=== PATIENT | male | born 1960 | race Caucasian/White ===

== ENCOUNTER 2024-04-04 09:21 | Day surgery (SDC) | payer MEDICARE, MEDICAID ==
[2024-03-31 11:42] LABS: BASOPHILS % (AUTO) 0.5 % (0-1); EOSINOPHILS % (AUTO) 0.7 % (0-6); HEMATOCRIT 39.6 % (42.0-52.0); HEMOGLOBIN 13.2 g/dl (14.0-17.9); LYMPHOCYTES # (AUTO) 1.7 X10'3 (1.1-4.8); LYMPHOCYTES % (AUTO) 26.4 % (21-51); MEAN CORPUSCULAR HEMOGLOBIN 31.9 PG (27.0-31.0); MEAN CORPUSCULAR HGB CONC 33.3 g/dL (33.0-36.5); MEAN CORPUSCULAR VOLUME 95.8 FL (78-98); MEAN PLATELET VOLUME 7.1 FL (7.4-10.4); MONOCYTES # (AUTO) 0.4 X10'3 (0-0.9); MONOCYTES % (AUTO) 6.4 % (2-12); NEUTROPHILS # (AUTO) 4.3 X10'3 (1.8-7.7); PLATELET COUNT 205 X10'3 (140-440); RED BLOOD COUNT 4.13 X10'6 (4.70-6.10); RED CELL DISTRIBUTION WIDTH 13.5 % (11.5-14.5); WHITE BLOOD COUNT 6.5 X10'3 (4.5-11.0)
[2024-03-31 11:48] LABS: APTT 26 SECONDS (22-32); PROTHROMBIN TIME 10.9 SECONDS (9.0-12.0)
[2024-03-31 12:02] LABS: ALBUMIN 4.1 G/DL (3.4-5.0); ANION GAP 5 (8-16); BLOOD UREA NITROGEN 21 MG/DL (7-18); BUN/CREATININE RATIO 12.1 (10.0-20.0); CALCIUM 8.8 MG/DL (8.5-10.1); CHLORIDE 105 MMOL/L (99-107); CHOL/HDL RATIO 2.2 (0.00-4.99); CHOLESTEROL 118 MG/DL (0-200); CREATININE 1.74 MG/DL (0.60-1.10); GLUCOSE 101 MG/DL (70-104); HDL CHOLESTEROL 54 MG/DL (35-60); LDL CHOLESTEROL 45 MG/DL (50-100); POTASSIUM 4.6 MMOL/L (3.5-5.1); SODIUM 138 MMOL/L (135-145); TOTAL CARBON DIOXIDE 28.2 MMOL/L (24-32); TRIGLYCERIDES 120 MG/DL (20-135); eGFR 40 ML/MIN
[~2024-04-04] VITALS: Ht 172.7 cm; Wt 87.6 kg
[2024-04-04] VITALS (9 sets, daily range): BP systolic 101–146; BP diastolic 76–101; PULSE 60–88; RESP 10–12; TEMP 98.2; O2SAT 95–100
[2024-04-04] MEDS ORDERED: NORT10CA81 PO (09:57)
[2024-04-04] MEDS ORDERED: ACET-1025 PO (09:57)
[2024-04-04] MEDS ORDERED: HALO20TA7 PO (09:57)
[2024-04-04] MEDS ORDERED: DULO-31 PO (09:57)
[2024-04-04] MEDS ORDERED: HYDR50TA65 PO (09:57)
[2024-04-04] MEDS ORDERED: LOSA1TAB41 PO (09:57)
[2024-04-04] MEDS ORDERED: FLUO10TA34 PO (09:57)
[2024-04-04] MEDS ORDERED: TOPI-95 PO (09:57)
[2024-04-04] MEDS ORDERED: OMEP20CA16 PO (09:57)
[2024-04-04] MEDS ORDERED: BACL10TA2 PO (09:57)
[2024-04-04] MEDS ORDERED: QUET300T20 PO (09:57)
[2024-04-04] MEDS ORDERED: ROSU10TA72 PO (09:59)
[2024-04-04] MEDS ORDERED: ALBU17AE26 (09:59)
[2024-04-04] MEDS: LORazepam 0.5 MG tablet PO PRN (10:20)
[2024-04-04] MEDS: normal saline 1,000 ML IV SCH (10:20)
[2024-04-04] MEDS: diphenhydrAMINE 25mg capsule PO PRN (10:20)
[2024-04-04] MEDS ORDERED: midazolam 1 mg/ML 2ml injection ONE ×4 (13:51→14:18)
[2024-04-04] MEDS ORDERED: heparin 1,000unit/ml 10ml vial 10 ML ONE (13:51)
[2024-04-04] MEDS ORDERED: verapamil 2.5 mg/ml inj IV ONE (13:51)
[2024-04-04] MEDS ORDERED: LIDOcaine 1% (10mg/ml) 2ml vial ONE (13:51)
[2024-04-04] MEDS ORDERED: fentaNYL/PF 50MCG/1 ML 2ML syringe ONE (13:51)
[2024-04-04] MEDS ORDERED: iohexol 350MG/ML 100ml bottle IV ONE (13:51)
[2024-04-04] MEDS ORDERED: nitroGLYCERIN 500mcg/5mL D5W 5 ML IV ONE (14:09)
[2024-04-04] MEDS ORDERED: ondansetron/PF 4mg/2ml inj IV PRN (14:55)
[2024-04-04] MEDS ORDERED: proCHLORperazine 10 MG/2 ml inj IV PRN (14:55)
[2024-04-04] MEDS ORDERED: HYDROcodone/acetaminophen 10/325mg tab PO PRN (14:55)
[2024-04-04] MEDS ORDERED: HYDROcodone/acetaminophen 5mg/325mg tablet PO PRN (14:55)
[2024-04-04] MEDS ORDERED: nitroGLYCERIN 0.4mg SUBLingual tab SL PRN (14:55)
== END 2024-04-04 18:00 | disposition home or self-care (01) ==
LOC: SSTAY O 09:21
PROVIDERS: ATTEND Student in an Organized Health Care Education/Training Program
DX: R94.39 Abnormal result of other cardiovascular function study (principal); I25.119 Atherosclerotic heart disease of native coronary artery with unspecified angina pectoris; I12.9 Hypertensive chronic kidney disease with stage 1 through stage 4 chronic kidney disease, or unspecified chronic kidney disease; N18.30 Chronic kidney disease, stage 3 unspecified; E78.00 Pure hypercholesterolemia, unspecified; Z85.46 Personal history of malignant neoplasm of prostate; Z79.899 Other long term (current) drug therapy; Z88.5 Allergy status to narcotic agent; Z88.8 Allergy status to other drugs, medicaments and biological substances
CPT/HCPCS: 36415; 80048; 80061; 85025; 85610; 85730; 93005; 93458; 99152; A6258; A6402; C1769; C1894; J1644; J2001; J2250; J3010; J3490; J7030; Q0163; Q9967; Z7610

== ENCOUNTER → 2024-06-05 | Outpatient (CLI) | payer MEDICARE, MEDICAID ==
[~2024-06-05] MED LIST: ACET-1025 PO; ALBU17AE26; BACL10TA2 PO; DULO-31 PO; FLUO10TA34 PO; HALO20TA7 PO; HYDR50TA65 PO; LOSA1TAB41 PO; NORT10CA81 PO; OMEP20CA16 PO; QUET300T20 PO; ROSU10TA72 PO; TOPI-95 PO
[2024-06-05 09:52] LABS: BASOPHILS % (AUTO) 0.4 % (0-1); EOSINOPHILS # (AUTO) 0.1 X10'3 (0-0.9); EOSINOPHILS % (AUTO) 0.8 % (0-6); HEMATOCRIT 36.1 % (42.0-52.0); HEMOGLOBIN 12.4 g/dl (14.0-17.9); LYMPHOCYTES # (AUTO) 1.6 X10'3 (1.1-4.8); LYMPHOCYTES % (AUTO) 21.9 % (21-51); MEAN CORPUSCULAR HEMOGLOBIN 32.5 PG (27.0-31.0); MEAN CORPUSCULAR HGB CONC 34.3 g/dL (33.0-36.5); MEAN CORPUSCULAR VOLUME 94.7 FL (78-98); MEAN PLATELET VOLUME 6.5 FL (7.4-10.4); MONOCYTES # (AUTO) 0.6 X10'3 (0-0.9); NEUTROPHILS % (AUTO) 68.9 % (42-75); PLATELET COUNT 249 X10'3 (140-440); RED BLOOD COUNT 3.81 X10'6 (4.70-6.10); RED CELL DISTRIBUTION WIDTH 13.3 % (11.5-14.5); WHITE BLOOD COUNT 7.3 X10'3 (4.5-11.0)
[2024-06-05 10:15] LABS: ALANINE AMINOTRANSFERASE 31 U/L (12-78); ALBUMIN/GLOBULIN RATIO 1.2 (1.1-1.5); ALKALINE PHOSPHATASE 118 IU/L (46-116); ANION GAP 10 (8-16); ASPARTATE AMINO TRANSFERASE 16 U/L (10-37); BILIRUBIN,TOTAL 0.5 MG/DL (0.1-1.0); BLOOD UREA NITROGEN 18 MG/DL (7-18); BUN/CREATININE RATIO 11.8 (10.0-20.0); CALCIUM 9.3 MG/DL (8.5-10.1); CHLORIDE 102 MMOL/L (99-107); CREATININE 1.52 MG/DL (0.60-1.10); GLUCOSE 108 MG/DL (70-104); POTASSIUM 4.3 MMOL/L (3.5-5.1); SODIUM 137 MMOL/L (135-145); TOTAL CARBON DIOXIDE 24.9 MMOL/L (24-32); TOTAL PROTEIN 7.4 G/DL (6.4-8.2); eGFR 47 ML/MIN
== END | disposition home or self-care (01) ==
LOC: VAS 09:26
PROVIDERS: ATTEND Student in an Organized Health Care Education/Training Program
DX: M51.379 Other intervertebral disc degeneration, lumbosacral region without mention of lumbar back pain or lower extremity pain (principal); M85.88 Other specified disorders of bone density and structure, other site; N18.30 Chronic kidney disease, stage 3 unspecified; N28.1 Cyst of kidney, acquired; R10.9 Unspecified abdominal pain
CPT/HCPCS: 36415; 72100; 80053; 85025; 93975